=== PATIENT | female | born 1935 | race Hispanic/Latino ===

== ENCOUNTER 2017-11-08 18:55 | Observation (INO) | payer MEDICARE, BC ==
[2017-11-08 19:07] VITALS: BMI 36.6
[2017-11-08] MEDS ORDERED: Sodium Chloride 0.9% 1,000 ML IV ONE ×2 (19:32→21:36)
[2017-11-08 19:46] LABS: BASO # 0.01 K/mm3 (0.0-2.0); BASO % 0.1 % (0.0-3.0); GRAN # 14.06 (1.4-6.5); GRAN % 87.4 % (50.0-68.0); HEMOGLOBIN 11.4 g/dL (12.0-16.0); LYMPH # 1.6 (1.2-3.4); LYMPH % 9.9 % (22.0-35.0); MEAN CELL VOLUME 87.1 fl (80.0-105.0); MEAN CORPUSCULAR HEMOGLOBIN 28.9 pg (25.0-35.0); MEAN CORPUSCULAR HGB CONC 33.1 g/dl (31.0-37.0); MEAN PLATELET VOLUME 10.3 fl (7.0-11.0); MONO # 0.4 (0.1-0.6); MONO % 2.6 % (1.0-6.0); RBC 3.95 10^6/uL (3.5-6.1); RED CELL DISTRIBUTION WIDTH 13.8 % (11.5-14.5); WHITE BLOOD COUNT 16.1 10^3/ul (4.5-11.0)
[2017-11-08 20:10] LABS: ALB/GLOB RATIO 1.6 (1.1-1.8); ALBUMIN 3.8 g/dL (3.0-4.8); ALT/SGPT 35 U/L (7-56); AST/SGOT 41 U/L (14-36); BLOOD UREA NITROGEN 40 mg/dL (7-21); CALCIUM 9.1 mg/dL (8.4-10.5); GFR AFRICAN-AMERICAN > 60; GFR NON-AFRICAN AMERICAN > 60
[2017-11-08 20:16] LABS: B-TYPE NATRIURETIC PEPTIDE 1170 pg/mL (0-450); TROPONIN I 0.03 ng/mL
[2017-11-08 20:18] LABS: VENOUS BLOOD GAS BASE EXCESS -2.5 mmol/L (0.0-2.0); VENOUS BLOOD GAS PO2 85 mm/Hg (30-55); VENOUS BLOOD PH 7.37 (7.32-7.43)
--- NOTE | 2017-11-08 21:02 | CT ---
EXAM: CT Head Without Intravenous Contrast CLINICAL HISTORY: 82 years old, female; Signs and symptoms; Other: Possible TIA; Additional info: R/O ich TECHNIQUE: Axial computed tomography images of the head/brain without intravenous contrast. All CT scans at this facility use one or more dose reduction techniques, viz.: automated exposure control; ma/kV adjustment per patient size (including targeted exams where dose is matched to indication; i.e. head); or iterative reconstruction technique. Coronal and sagittal reformatted images were created and reviewed. COMPARISON: No relevant prior studies available. FINDINGS: Brain: [id number] atrophy. No intracranial hemorrhage. No mass. Few scattered foci of decreased attenuation within periventricular/subcortical white matter. No definite edema. Ventricles: No hydrocephalus. Bones/joints: No acute fracture. Mild subluxation of LEFT temporomandibular joint. Soft tissues: Unremarkable. Vasculature: Atherosclerotic disease of intracranial arteries. Sinuses: No acute sinusitis. Mastoid air cells: No mastoid effusion. Orbits: Unremarkable as visualized. IMPRESSION: 1. Nonspecific white matter changes. Acute infarction may be CT occult within first 24 hours. If a focal deficit persists, consider followup CT or MRI for further evaluation. 2. Incidental/non-acute findings are described above.
[2017-11-08 21:32] LABS: URINE BILIRUBIN NEGATIVE (NEGATIVE); URINE BLOOD SMALL (NEGATIVE); URINE GLUCOSE (UA) >=1000 mg/dL (NEGATIVE); URINE LEUKOCYTE ESTERASE NEGATIVE Leu/uL (NEGATIVE); URINE PROTEIN NEGATIVE mg/dL (<30 mg/dL); URINE UROBILINOGEN 0.2 E.U./dL (<1 E.U./dL)
[2017-11-08 21:34] LABS: URINE APPEARANCE CLEAR (CLEAR); URINE COLOR LIGHT YELLOW (YELLOW)
[2017-11-08 21:53] LABS: URINE EPITHELIAL CELLS 0 - 2 /hpf (0-5); URINE RBC 0 - 2 /hpf (0-2)
[2017-11-08 21:54] LABS: URINE BACTERIA NEG (NEG)
--- NOTE | 2017-11-08 22:03 | ED PDOC ---
Arrival/HPI - General Chief Complaint: High Blood Sugar Time Seen by Provider: 11/08/17 18:56 Historian: Patient - History of Present Illness Narrative History of Present Illness (Text): 11/08/17 22:02 An 82 year old female, whose past medical history includes hypertension, diabetes, presents to the emergency department complaining of facial twitching throughout the day. Patient complaining of dry mouth. Patient denies any slurring of speech, no numbness. Patient was recently started on PO steroids for back pain. Patient denies any other complaints at this time. Symptom Onset: Sudden Symptom Course: Unchanged Activities at Onset: Rest Context: Home Past Medical History - Provider Review Nursing Documentation Reviewed: Yes - Infectious Disease Hx of Infectious Diseases: None - Cardiac Hx Cardiac Disorders: Yes Hx Hypertension: Yes - Pulmonary Hx Respiratory Disorders: No - Neurological Hx Neurological Disorder: No - HEENT Hx HEENT Disorder: No - Renal Hx Renal Disorder: No - Endocrine/Metabolic Hx Endocrine Disorders: Yes Hx Diabetes Mellitus Type 2: Yes - Hematological/Oncological Hx Blood Disorders: Yes Hx Cancer: Yes (breast, colon, spinal) - Integumentary Hx Dermatological Disorder: No - Musculoskeletal/Rheumatological Hx Musculoskeletal Disorders: No - Gastrointestinal Hx Gastrointestinal Disorders: No - Genitourinary/Gynecological Hx Genitourinary Disorders: No - Psychiatric Hx Psychophysiologic Disorder: No Hx Depression: No Hx Emotional Abuse: No Hx Physical Abuse: No Hx Substance Use: No - Surgical History Other/Comment: colon and breast r/t cancer - Suicidal Assessment Feels Threatened In Home Enviroment: No Family/Social History - Physician Review Nursing Documentation Reviewed: Yes Family/Social History: No Known Family HX Smoking Status: Never Smoked Hx Alcohol Use: No Hx Substance Use: No Hx Substance Use Treatment: No Allergies/Home Meds Allergies/Adverse Reactions: Allergies No Known Allergies Allergy (Verified 06/21/15 15:00) Home Medications: Home Meds Medication Instructions Recorded Confirmed Acetaminophen [Non-Aspirin Pain 650 mg PO PRN PRN 11/08/17 11/08/17 Relief] Aspirin [Aspirin Chewable] 81 mg PO DAILY 11/08/17 11/08/17 Baclofen [Lioresal] 0.5 tab PO BID 11/08/17 11/08/17 Calcium Carbonate [Calcium] 1,000 mg PO BID 11/08/17 11/08/17 Dexamethasone [Decadron] 4 mg PO BID 11/08/17 11/08/17 Docusate [Colace] 200 mg PO HS 11/08/17 11/08/17 Exemestane [Aromasin] 25 mg PO DAILY 11/08/17 11/08/17 Famotidine [Pepcid] 20 mg PO BID 11/08/17 11/08/17 Glimepiride [amaRYL] 4 mg PO DAILY 11/08/17 11/08/17 Insulin Glargine, Recombina 50 unit SC DAILY 11/08/17 11/08/17 [Lantus] Lactulose [Constulose] 10 gm PO BID 11/08/17 11/08/17 Losartan [Cozaar] 25 mg PO DAILY 11/08/17 11/08/17 Metoprolol Tartrate [Lopressor] 25 mg PO Q12H 11/08/17 11/08/17 [place]-3 Fatty Acids/Fish Oil [Fish 500 mg PO DAILY 11/08/17 11/08/17 Oil 1,000 mg Capsule] Oxybutynin [Ditropan Tab] 5 mg PO HS 11/08/17 11/08/17 Pravastatin Sodium [Pravachol] 40 mg PO DAILY 11/08/17 11/08/17 Pregabalin [Lyrica] 100 mg PO BID 11/08/17 11/08/17 Sennosides [Senna Concentrate] 8.6 mg PO HS 11/08/17 11/08/17 Ticagrelor [Brilinta] 90 mg PO Q12 11/08/17 11/08/17 metFORMIN [glucOPHAGE] 1,000 mg PO BID 11/08/17 11/08/17 oxyCODONE [oxyCODONE Immediate 5 mg PO Q4H PRN 11/08/17 11/08/17 Release Tab] Review of Systems - Physician Review All systems were reviewed & negative as marked: Yes - Review of Systems Constitutional: absent: Fevers ENT: Other (dry mouth) Neurological: Other (facial twitching) Physical Exam Vital Signs Reviewed: Yes Vital Signs Temp Pulse Resp BP Pulse Ox 11/08/17 19:25 97.7 F 98 H 18 131/53 L 95 Temperature: Afebrile Blood Pressure: Normal Pulse: Regular Respiratory Rate: Normal Appearance: Positive for: Well-Appearing, Non-Toxic, Comfortable Pain Distress: None Mental Status: Positive for: Alert and Oriented X 3 Finger Stick Blood Glucose: 471 - Systems Exam Head: Present: Atraumatic, Normocephalic Pupils: Present: PERRL Extroacular Muscles: Present: EOMI Conjunctiva: Present: Normal Mouth: Present: Dry Neck: Present: Normal Range of Motion Respiratory/Chest: Present: Clear to Auscultation, Good Air Exchange. No: Respiratory Distress, Accessory Muscle Use Cardiovascular: Present: Regular Rate and Rhythm, Normal S1, S2. No: Murmurs Abdomen: No: Tenderness, Distention, Peritoneal Signs Back: Present: Normal Inspection Upper Extremity: Present: Normal Inspection. No: Cyanosis, Edema Lower Extremity: Present: Normal Inspection. No: Edema Neurological: Present: GCS=15, CN II-XII Intact, Speech Normal Skin: Present: Warm, Dry, Normal Color. No: Rashes Psychiatric: Present: Alert, Oriented x 3, Normal Insight, Normal Concentration Medical Decision Making ED Course and Treatment: 11/08/17 22:01 Impression: An 82 year old female with facial twitching and dry mouth. Plan: -- CT head -- EKG -- labs -- Chest X-ray -- Urinalysis -- IV fluids -- Reassess and disposition Progress Notes: EKG: Ordered, reviewed, and independently interpreted the EKG. Rate : 98 BPM Rhythm : NSR Interpretation : normal intervals, normal axis CT Head Without Intravenous Contrast FINDINGS: Brain: Iayq-zg-[id number] atrophy. No intracranial hemorrhage. No mass. Few scattered foci of decreased attenuation within periventricular/subcortical white matter. No definite edema. Ventricles: No hydrocephalus. Bones/joints: No acute fracture. Mild subluxation of LEFT temporomandibular joint. Soft tissues: Unremarkable. Vasculature: Atherosclerotic disease of intracranial arteries. Sinuses: No acute sinusitis. Mastoid air cells: No mastoid effusion. Orbits: Unremarkable as visualized. IMPRESSION: 1. Nonspecific white matter changes. Acute infarction may be CT occult within first 24 hours. If a focal deficit persists, consider followup CT or MRI for further evaluation. 2. Incidental/non-acute findings are described above. Dictated and Authenticated by: Ferdinand Caldwell MD 11/08/2017 9:02 PM Eastern Time ([place] & [place] M) Spoke with Dr. Motta, who agrees to admit patient. Chest X-ray- mild cardiomegaly, as read by me. - Lab Interpretations Lab Results: 11/08/17 19:15 11/08/17 19:15 Lab Results 11/08/17 20:50: Urine Color Light yellow, Urine Appearance Clear, Urine pH 6.0, Ur Specific [place] 1.010, Urine Protein Negative, Urine Glucose (UA) >=1000, Urine Ketones 15 H, Urine Blood Small H, Urine Nitrate Negative, Urine Bilirubin Negative, Urine Urobilinogen 0.2, Ur Leukocyte Esterase Negative, Urine RBC 0 - 2, Urine WBC 1 - 3, Ur Epithelial Cells 0 - 2, Urine Bacteria Neg 11/08/17 20:02: pO2 85 H, VBG pH 7.37, VBG pCO2 39.0 L, VBG HCO3 22.5, VBG Total CO2 23.7, VBG O2 Sat (Calc) 98.1 H, VBG Base Excess -2.5 L, VBG Potassium 5.2, Glucose 592 H*, Lactate 3.0 H, FiO2 21.0, Sodium 126.0 L, Chloride 92.0 L, Venous Blood Potassium 5.2 11/08/17 19:15: Sodium 128 L, Potassium 5.2 H, Chloride 91 L, Carbon Dioxide 19 L, Anion Gap 23 H, BUN 40 H, Creatinine 0.9, Est GFR ( Amer) > 60, Est GFR (Non-Af Amer) > 60, Random Glucose 603 H* D, Calcium 9.1, Magnesium 1.7, Total Bilirubin 0.2, AST 41 H, ALT 35, Alkaline Phosphatase 79, Lactate Dehydrogenase 340, Total Creatine Kinase 98, Troponin I 0.03, NT-Pro-B Natriuret Pep 1170 H, Total Protein 6.1, Albumin 3.8, Globulin 2.3, Albumin/ Globulin Ratio 1.6 11/08/17 19:15: WBC 16.1 H, RBC 3.95, Hgb 11.4 L, Hct 34.4 L, MCV 87.1, MCH 28.9 , MCHC 33.1, RDW 13.8, Plt Count 260, MPV 10.3, Gran % 87.4 H, Lymph % (Auto) 9.9 L, [place] % (Auto) 2.6, Eos % (Auto) 0.0 L, Baso % (Auto) 0.1, Gran # 14.06 H , Lymph # (Auto) 1.6, [place] # (Auto) 0.4, Eos # (Auto) 0.0, Baso # (Auto) 0.01 I have reviewed the lab results: Yes - RAD Interpretation Radiology Orders: 11/08/17 19:30 CHEST ONE VIEW [RAD] Stat 11/08/17 19:31 HEAD W/O CONTRAST [CT] Stat - EKG Interpretation Interpreted by ED Physician: Yes Type: 12 lead EKG - Medication Orders Current Medication Orders: Sodium Chloride (Sodium Chloride 0.9%) 1,000 mls @ 75 mls/hr IV .[id number] ONE Stop: 11/09/17 08:51 Discontinued Medications Sodium Chloride (Sodium Chloride 0.9%) 1,000 mls @ 250 mls/hr IV .Q4H ONE Stop: 11/08/17 23:31 Last Admin: 11/08/17 19:39 Dose: 250 mls/hr eMAR Start Stop Document 11/08/17 19:39 LA (Rec: 11/08/17 19:41 [place] [facility] [place]-[id number]) Intravenous Solution Start Date 11/08/17 Start Time 19:39 - Scribe Statement The provider has reviewed the documentation as recorded by the Ale Mckenzie Provider Scribe Attestation: All medical record entries made by the Scribe were at my direction and personally dictated by me. I have reviewed the chart and agree that the record accurately reflects my personal performance of the history, physical exam, medical decision making, and the department course for this patient. I have also personally directed, reviewed, and agree with the discharge instructions and disposition. Disposition/Present on Arrival - Present on Arrival Any Indicators Present on Arrival: Yes History of DVT/PE: No History of Uncontrolled Diabetes: Yes Urinary Catheter: No History of Decub. Ulcer: No History Surgical Site Infection Following: None - Disposition Have Diagnosis and Disposition been Completed?: Yes Diagnosis: Hyperglycemia, Dehydration, Acute low back pain Disposition: HOSPITALIZED Disposition Time: 21:00 Condition: STABLE
[2017-11-08] MEDS ORDERED: Insulin Regular 1 UNITS/0.01 ML ML IVP STA (22:31)
[2017-11-08] MEDS ORDERED: Insulin Regular 1 UNITS/0.01 ML ML ONE (22:35)
[2017-11-08] MEDS ORDERED: Pneumococcal 23-Valent Vaccine IM ONE (23:07)
[2017-11-08] MEDS ORDERED: oxyCODONE 5 mg Immediate Release Tab PO PRN (23:09)
[2017-11-08] MEDS ORDERED: Insulin Detemir 100 units/ml Vial (Levemir) SC SCH (23:45)
[2017-11-09 01:13] LABS: VENOUS BLOOD GAS BASE EXCESS 2.7 mmol/L (0.0-2.0); VENOUS BLOOD GAS PO2 76 mm/Hg (30-55); VENOUS BLOOD PH 7.41 (7.32-7.43)
[2017-11-09] MEDS ORDERED: Insulin Reg-MEDIUM-Coverage SC ONE (03:13)
[2017-11-09 05:27] LABS: BASO # 0.01 K/mm3 (0.0-2.0); BASO % 0.1 % (0.0-3.0); EOS % 0.2 % (1.5-5.0); GRAN # 10.84 (1.4-6.5); GRAN % 78.5 % (50.0-68.0); LYMPH # 1.8 (1.2-3.4); LYMPH % 12.7 % (22.0-35.0); MEAN CELL VOLUME 86.2 fl (80.0-105.0); MEAN CORPUSCULAR HEMOGLOBIN 29.1 pg (25.0-35.0); MEAN CORPUSCULAR HGB CONC 33.7 g/dl (31.0-37.0); MEAN PLATELET VOLUME 9.7 fl (7.0-11.0); MONO # 1.2 (0.1-0.6); MONO % 8.5 % (1.0-6.0); RBC 3.78 10^6/uL (3.5-6.1); RED CELL DISTRIBUTION WIDTH 13.9 % (11.5-14.5); WHITE BLOOD COUNT 13.8 10^3/ul (4.5-11.0)
[2017-11-09 05:29] LABS: VENOUS BLOOD GAS PO2 164 mm/Hg (30-55); VENOUS BLOOD PH 7.43 (7.32-7.43)
[2017-11-09 05:42] LABS: ALB/GLOB RATIO 1.5 (1.1-1.8); ALBUMIN 3.4 g/dL (3.0-4.8); ALT/SGPT 28 U/L (7-56); AST/SGOT 23 U/L (14-36); BLOOD UREA NITROGEN 28 mg/dL (7-21); CALCIUM 8.8 mg/dL (8.4-10.5); GFR AFRICAN-AMERICAN > 60; GFR NON-AFRICAN AMERICAN > 60
[2017-11-09] MEDS: Insulin Reg-MEDIUM-Coverage SC SCH ×3 (07:37→17:16)
--- NOTE | 2017-11-09 08:33 | RAD ---
PROCEDURE: CHEST RADIOGRAPH, 1 VIEW HISTORY: r/o infiltrate COMPARISON: None available. FINDINGS: LUNGS: Clear. PLEURA: No pneumothorax or pleural fluid seen. CARDIOVASCULAR: Normal. OSSEOUS STRUCTURES: No significant abnormalities. VISUALIZED UPPER ABDOMEN: Normal. OTHER FINDINGS: None. IMPRESSION: No active disease.
[2017-11-09] MEDS ORDERED: Sodium Chloride 0.9% 1,000 ML IV SCH (09:15)
--- NOTE | 2017-11-09 09:15 | CARD ---
APPROVED REPORT EKG Measurement Heart [id number] <Conclusion> Normal sinus rhythm Left axis deviation
[2017-11-09] MEDS: Insulin Detemir 100 units/ml Vial (Levemir) SC SCH ×2 (09:16→21:47)
[2017-11-09] MEDS ORDERED: FATTY ACIDS PO SCH (10:00)
[2017-11-09] MEDS ORDERED: FISH OIL PO SCH (10:00)
[2017-11-09] MEDS ORDERED: [UNRECOGNIZED DRUG - OTHER] PO SCH (10:00)
[2017-11-09] MEDS ORDERED: OMEGA PO SCH (10:00)
[2017-11-09 10:22] LABS: VENOUS BLOOD GAS BASE EXCESS 2.7 mmol/L (0.0-2.0); VENOUS BLOOD GAS PO2 116 mm/Hg (30-55); VENOUS BLOOD PH 7.47 (7.32-7.43)
--- NOTE | 2017-11-09 16:49 | HP ---
HISTORY OF PRESENT ILLNESS: The patient is an 82 year old woman with a past medical history of hypertension , NIDDM and lumbosacral radiculopathy secondary to severe spinal stenosis who presented to the ED for evaluation of a 3 day history of increased thirst, malaise, dizziness, excessive urination and dry mouth. The patient reports that she has been recently started on Decadron 4 mg p.o. b.i.d. for treatment of severe low back pain secondary to the spinal stenosis. She reports that since she has been started on Decadron her sugars have been wildly uncontrolled at home. She further reports polydipsia and polyuria associated with her symptoms as well as a dry mouth and light headedness. Given her symptoms she presented to the ED for evaluation. Examination in the ED found her to be afebrile and hemodynamically stable however clinically dehydrated. Laboratory studies confirmed significant prerenal azotemia as well as marked hyperglycemia with a serum glucose of 603. The patient received intravenous insulin and was started on IV fluid hydration before being admitted to the [facility] for management of dehydration and hyperosmolar hyperglycemic state. PAST MEDICAL HISTORY: As per HPI, also hyperlipidemia, CAD s/p PCI with stent placement, history of colon cancer s/p resection and history of breast cancer. PAST SURGICAL HISTORY: Partial colectomy secondary to colon cancer, lumpectomy of the breast secondary to breast cancer. ALLERGIES: NKDA. MEDICATIONS: Aspirin 81 mg p.o. daily, Lipitor 10 mg p.o. daily, Decadron 4 mg p.o. b.i.d., Pepcid 20 mg p.o. b.i.d., Glimepiride 4 mg p.o. daily, Levemir 25 units subcutaneous b.i.d., Cozaar 25 mg p.o. daily, Metformin 1000 mg p.o. b.i.d., Lopressor 25 mg p.o. b.i.d., Lyrica 100 mg p.o. b.i.d., Brilinta 90 mg p.o. b.i.d., Exemestane 25 mg p.o. daily and Baclofen 5 mg p.o. b.i.d. FAMILY HISTORY: Noncontributory. SOCIAL HISTORY: The patient reports social alcohol use, but denies smoking or illicit drug abuse. REVIEW OF SYSTEMS: A 14-point review of systems is negative except as per HPI. PHYSICAL EXAMINATION: VITAL SIGNS: Temperature 97.6, pulse 83, blood pressure 138/73, respiratory rate 20, oxygen saturation 94% on room air. GENERAL: Elderly woman appearing her stated age, lying in bed, in no apparent distress. HEENT: PERRL, EOMI. No scleral icterus. No conjunctival pallor. Mucous membranes are dry. NECK: No JVD. LUNGS: Clear to auscultation. CARDIOVASCULAR: Regular rate and rhythm. Normal S1 and S2. ABDOMEN: Normoactive bowel sounds. Soft, nontender, and nondistended. EXTREMITIES: No clubbing, cyanosis, or edema. NEUROLOGIC: Awake, alert, and oriented x 3. No focal motor deficits. SKIN: Poor skin turgor is noted. LABORATORY DATA: WBC 13.8, hemoglobin 11, hematocrit 33, and platelets 210. Sodium 136, potassium 4.4, chloride 98, bicarb 26. BUN 28, creatinine 0.8. Glucose 300. Troponin 0.03. BNP 1170. IMAGING STUDIES: 1. Chest x-ray demonstrated no acute pathology. 2. CT of the head without contrast demonstrates nonspecific white matter changes, otherwise no acute pathology. ASSESSMENT: The patient is an 82 year old woman with a past medical history of CAD s/p PCI with stent placement, HTN, hyperlipidemia, IDDM and lumbosacral radiculopathy secondary to spinal stenosis who was admitted for management of hyperosmolar hyperglycemic state, hyponatremia and dehydration. PLAN: 1. Hyperosmolar hyperglycemic state, likely precipitated by Decadron use. Laboratory studies on admission demonstrated profound hyperglycemia with a serum glucose of 604. The patient's insulin dose has been adjusted and she has james adequately rehydrated with significant improvement in her serum glucose to 300. She was counseled on the need to increase her basal insulin while on high- dose steroids. 2. Leukocytosis, etiology likely secondary to Decadron use. Clinically, the patient has no signs or symptoms of infection. 3. Hyponatremia, etiology likely secondary to markedly elevated serum glucose, resolved with IV fluid hydration and correction of hyperglycemia. 4. Dehydration. Laboratory studies on admission were consistent with profound prerenal azotemia which has resolved with administration of isotonic saline. The patient furthermore reports significant improvement in her thirst. 5. Insulin-dependant diabetes mellitus. As above, the patient has been advised to adjust her basal insulin to Levemir 30 units subcutaneous every 12 hours while she is on high dose steroids. Continue with Metformin 1000 mg p.o. b.i.d. and Glimepiride 4 mg p.o. daily. 6. CAD s/p PCI with stent placement. Continue Aspirin 81 mg p.o. daily, Lipitor 10 mg p.o. daily, Metoprolol 25 mg p.o. b.i.d., and Brilinta 90 mg p.o. b.i.d. 7. Hypertension, blood pressure controlled. Continue with Metoprolol 25 mg p.o. b.i.d. and Cozaar 25 mg p.o. daily. 8. Hyperlipidemia. Continue Lipitor 10 mg p.o. daily. 9. Lumbosacral radiculopathy secondary to severe spinal stenosis. Continue Baclofen 5 mg p.o. b.i.d., and Lyrica 100 mg p.o. b.i.d. 10. GERD. Continue Pepcid 20 mg p.o. daily. 11. Prophylaxis. Continue Pepcid for GI prophylaxis. DVT prophylaxis is not indicated as the patient is ambulatory. CODE STATUS: Full code. Singh Epperson MD MTDD
[2017-11-09 17:05] VITALS: TEMP 97.3
[2017-11-10] MEDS: Insulin Reg-MEDIUM-Coverage SC SCH ×2 (00:59→09:17)
[2017-11-10 05:55] LABS: HEMOGLOBIN 11.3 g/dL (12.0-16.0); MEAN CELL VOLUME 86.6 fl (80.0-105.0); MEAN CORPUSCULAR HEMOGLOBIN 29.2 pg (25.0-35.0); MEAN CORPUSCULAR HGB CONC 33.7 g/dl (31.0-37.0); MEAN PLATELET VOLUME 9.8 fl (7.0-11.0); RBC 3.87 10^6/uL (3.5-6.1); RED CELL DISTRIBUTION WIDTH 13.8 % (11.5-14.5); WHITE BLOOD COUNT 15.5 10^3/ul (4.5-11.0)
[2017-11-10 05:57] VITALS: BP 160/92; PULSE 96
[2017-11-10 06:00] LABS: ALB/GLOB RATIO 1.4 (1.1-1.8); ALBUMIN 3.5 g/dL (3.0-4.8); ALT/SGPT 33 U/L (7-56); AST/SGOT 26 U/L (14-36); BLOOD UREA NITROGEN 23 mg/dL (7-21); CALCIUM 9.2 mg/dL (8.4-10.5); GFR AFRICAN-AMERICAN > 60; GFR NON-AFRICAN AMERICAN > 60
[2017-11-10 07:39] VITALS: RESP 20; O2SAT 95
[2017-11-10] MEDS: Insulin Detemir 100 units/ml Vial (Levemir) SC SCH (09:18)
--- NOTE | 2017-11-11 03:31 | DS ---
LOCATION: The patient is currently in room 361, bed 1. HISTORY OF PRESENT ILLNESS: She is being discharged. There have been no acute events overnight. The patient is an 82-year-old female with a past history of hypertension and IDDM and lumbosacral radiculopathy secondary to severe spinal stenosis, who presented to the emergency room with a 3-day history of malaise, dizziness, excessive urination, dry mouth and thirst. The patient states that she had recently been on and is still on Decadron 4 mg p.o. twice a day. In the ER, the patient had a glucose of 603. PHYSICAL EXAMINATION: VITAL SIGNS: Temperature of 97.3, pulse rate of 96, blood pressure 160/92, respiratory rate of 20 with an O2 saturation of 95% on room air. HEENT: Unremarkable. NECK: Supple with full range of motion. No jugular venous distention or bruits are appreciated. LUNGS: Clear to auscultation and percussion bilaterally. HEART: With a regular rate and rhythm. No murmurs, rubs or gallops. NEUROLOGIC: The patient is intact. LABORATORY DATA: White blood cells are now 15.5, which have come down from 16.1, hemoglobin and hematocrit are 11.3 and 33.5. The patient's glucose this morning was 152. BUN of 23 and creatinine of 0.7. The patient will be discharged home on previous medications. We discussed checking her glucoses daily as well as adjusting her insulin dose based on a given glucose. DISCHARGE DIAGNOSES: 1. Hyperglycemia. 2. Diabetes mellitus. 3. Dehydration. 4. Hypertension. 5. Lumbosacral radiculopathy. Albert Epperson MD
== END 2017-11-10 11:18 | disposition home or self-care (01) ==
LOC: ED 18:55 → ERH 21:35 → 3RNO 22:52
PROVIDERS: ADMIT Student in an Organized Health Care Education/Training Program; ATTEND Student in an Organized Health Care Education/Training Program
DX: E11.65 Type 2 diabetes mellitus with hyperglycemia (principal); E86.0 Dehydration; E87.1 Hypo-osmolality and hyponatremia; I11.9 Hypertensive heart disease without heart failure; I25.10 Atherosclerotic heart disease of native coronary artery without angina pectoris; M54.17 Radiculopathy, lumbosacral region; K21.9 Gastro-esophageal reflux disease without esophagitis; M48.07 Spinal stenosis, lumbosacral region; E78.5 Hyperlipidemia, unspecified; Z79.4 Long term (current) use of insulin; Z79.82 Long term (current) use of aspirin; Z85.038 Personal history of other malignant neoplasm of large intestine; Z85.3 Personal history of malignant neoplasm of breast; Z95.5 Presence of coronary angioplasty implant and graft; Z90.49 Acquired absence of other specified parts of digestive tract
CPT/HCPCS: 36415; 70450; 71045; 80053; 81001; 82550; 82803; 82948; 83605; 83615; 83735; 83880; 84484; 85025; 85027; 87086; 93005; 96374; 99285; G0378; J7040; J8540